=== PATIENT | female | born 1990 | race Caucasian/White ===

== ENCOUNTER 2019-04-11 15:04 | Inpatient (IN) | payer MEDICAID, OTHER, SELFPAY ==
[~2019-04-11 15:04] MED LIST: ePHEDrine 50 MG/ML VIAL ONE
--- NOTE | 2019-04-11 15:21 | PDOC.FPROB ---
FMR OB H&P: HPI - History of Present Illness Chief Complaint: decreased movement Indentification: History of Present Illness: 28 yo at 39.4 by 21.6wk sono here for oct. FM. Started Wednesday likely precipitated by oral intake since nauseas. Emesis x1. Denies fevers, chills. [place] LOF, VB, VD. No other sxs. No trauma. Scheduled for elective C/S this . [place] b/c "baby had pooped." No concerns otherwise. Primary Care Physician: Jaime FMR OB H&P: Current - Care : 3 Para: 2 Gestational age: 39.2 Due date: 04/16/19 Dating Criteria: 21.6wk sono Course/Complications: 1. Elevated 1 hr GTT 2. Late to transfer of care - OB Labs Blood type: O RH: positive Antibody Screen: negative HIV: negative RPR: negative Rubella: immune Gonorrhea: negative Chlamydia: negative Pap Smear: NILM GBS: negative FMR OB H&P: History - Past Medical History PMH: Denies - OB History OB History: 2 C/S first one indicated for "baby pooping," likely for NRFHT - Surgical History Sx History: 2 C/S - Social History Social History: Denies PELON - Family History Family History: Denies FMR OB H&P: Medications - Current Home Medications: Medication Instructions Recorded Confirmed Type Ferrous Sulfate [Ferosul] 1 tab PO DAILY 04/11/19 04/11/19 History Vitamin 1 tablet PO DAILY 04/11/19 04/11/19 History Allergies/Adverse Reactions: Allergies Allergy/AdvReac Type Severity Reaction Status Date / Time No Known Drug Allergies Allergy Verified 04/11/19 15:43 FMR OB H&P: ROS - Review of Systems General: reports: weight/appetite/sleep changes. denies: fever/chills ENT: denies: nasal congestion, rhinorrhea Cardiovascular: denies: chest pain, palpitation Respiratory: denies: shortness of breath, exercise intolerance Gastrointestinal: reports: nausea, vomiting. denies: abdominal pain, bloating Genitourinary (Female): denies: dysuria, hematuria, polyuria, vaginal discharge , vaginal pain, vaginal bleeding Musculoskeletal: denies: pain, stiffness Hematologic/Lymphatic: denies: prolonged or excessive bleeding (dec FM) Psychological: denies: anxiety FMR OB H&P: Vital Signs - Heart Tones Baseline: 150 Variability: minimal Acceleration: absent Deceleration: variable Category: category 2 FMR OB H&P: Physical Exam - Physical Exam General: NAD, awake, alert and oriented HEENT: normocephalic and atraumatic, PERRLA, EOMI, MMM Neck: supple, FROM Chest: non-tender to palpation Heart: RRR, normal S1/S2 General: CTAB, no respiratory distress Abdomen: soft, gravid Psychiatric: normal mood and affect FMR OB H&P: A/P - Problem List (1) Term Current Visit: Yes Status: Acute Code(s): Z34.90 - ENCNTR FOR SUPRVSN OF NORMAL , UNSP, UNSP TRIMESTER (2) Decreased movement Current Visit: Yes Status: Acute Code(s): O36.8190 - DECREASED MOVEMENTS, UNSP TRIMESTER, UNSP Disposition: sIUP, term -schedule repeat LTCS 04/13/19 -FHT: non-reassuring: baseline 150/minimal variability/2 variable decels -likely from dehydration -will start IV fluids/D5, proceed with c section -discussed with patient who agreed with proceeding with c section, understands risks & benefits Anemia of -home iron Recent immigration/late to care -Will need to continue routine care -Ensure up to date on vaccinations -Had negative TB screen in 2014 Hx 2 prior C sections -MD aware Glucose intolerance -Elevated 1 hr, no time to do 3hr GTT since late to care -Has been doing accuchecks -Will continue mgmt Discussion: Date/Time: 04/11/191520 This H&P was discussed with Dr. Chavira and Dr. Salgado who agree with the above documentation and plan. Addendum - Attending - Attending Attestation Date/Time: 04/11/192057 I personally evaluated the patient and discussed the management with Dr. Byrd I agree with the History, Examination, Assessment and Plan documented above with any addition or exceptions noted below- 28 yo female @ 39.4 weeks by 21 week USG presented c/o decreased FM since Wednesday. Denies any ctx, LOF, VB. H/o x 2. Afebrile VSS FHTs- 150/minimal variability/variable decels/ no accels. [place] no ctx A/P: 1) IUP @ 39.4 weeks with category 2 FHTs, decreased FM and prior c/s x 2- Admit ti l&d and plan to proceed with repeat c/ s for ninreassuring FHTs. Repeat LCT C/S performed under my direct supervision and assistance. Viable female delivered in vtx presentation. Apgars 1/8. Cord gas and blood collected. QBL 575mL Residents: Fan/[place]
[2019-04-11 15:47] VITALS: BMI 32.1
[2019-04-11] MEDS ORDERED: Promethazine HCl 25 MG/ML VIAL IM PRN ×2 (15:51→18:07)
[2019-04-11] MEDS ORDERED: Ondansetron PF 4 MG/2 ML Vial IVP PRN ×2 (15:51→18:07)
[2019-04-11] MEDS ORDERED: Bicitra 30 ML UDCUP PO SCH (16:00)
[2019-04-11] MEDS ORDERED: CEFAZOLIN 2 GM in Premix Bag 1 BAG IVPB SCH (16:00)
[2019-04-11] MEDS ORDERED: Lactated Ringer's 1,000 ML IV SCH ×2 (16:00)
[2019-04-11] MEDS ORDERED: ePHEDrine/0.9% NaCl/PF SYRINGE 50 mg/10 ml ONE (16:23)
[2019-04-11] MEDS ORDERED: MORPHINE 5 MG/10 ML PF VIAL ONE (16:23)
[2019-04-11] MEDS ORDERED: Oxytocin 10 UNITS/ML VIAL ONE ×2 (16:23→18:10)
[2019-04-11 16:35] LABS: Hemoglobin 10.8 g/dL (12.0-16.0); Mean Corpuscular HGB CONC 33.6 g/dL (32.0-36.0); Mean Corpuscular Hemoglobin 26.3 pg (27.0-31.0); Mean Corpuscular Volume 78.2 fL (78.0-98.0); Mean Platelet Volume 8.2 fL (7.4-10.4); Platelet Count 329 thou/uL (130-400); RBC Distribution Width 14.7 % (11.5-14.5); Red Blood Cell (RBC) Count 4.12 mill/uL (4.20-5.40); White Blood Cell (WBC) Count 8.1 thou/uL (4.8-10.8)
[2019-04-11 17:13] LABS: HBSAg Index 0.31 S/CO (0-0.99); Hep B Surf Ag Non-Reactive S/CO (NonReactive)
[2019-04-11 17:18] LABS: Syphilis Antibody Nonreactive (Nonreactive); Syphilis Antibody Index 0.04 S/CO (<1.00 Non-Reactive)
[2019-04-11 17:58] LABS: Actual Bicarbonate (HCO3a) 16.5 mEq/L (22-28); Base Excess (BEa) -16.3 mEq/L (-2.0 to +3.0)
[2019-04-11] MEDS ORDERED: Eucerin (Mineral Oil/Petrolatum,White) 30 gm Jar TOP PRN (18:07)
[2019-04-11] MEDS ORDERED: Meperidine HCl/PF 25 MG/ML VIAL SLOW IVP PRN (18:07)
[2019-04-11] MEDS ORDERED: diphenhydrAMINE 50 MG/ML VIAL IVP PRN (18:07)
[2019-04-11] MEDS ORDERED: Ondansetron HCl/PF 4 MG/2 ML Vial IVP PRN (18:07)
[2019-04-11] MEDS ORDERED: Ketorolac Tromethamine 30 MG/ML VIAL IVP PRN (18:07)
[2019-04-11] MEDS ORDERED: Naloxone HCl 0.4 mg/ml Vial IVP PRN ×2 (18:07)
[2019-04-11] MEDS ORDERED: Naloxone HCl 0.4 mg/ml Vial IV PRN (18:07)
[2019-04-11] MEDS ORDERED: Promethazine HCl 25 MG SUPP PR PRN (18:07)
[2019-04-11] MEDS ORDERED: L&D-Morphine 4 MG/ML VIAL SLOW IVP PRN (18:07)
[2019-04-11] MEDS ORDERED: HYDROmorphone 2 MG/ML VIAL SLOW IVP PRN (18:07)
[2019-04-11] MEDS ORDERED: Ketorolac Tromethamine 30 MG/ML VIAL IVP SCH (18:15)
[2019-04-11] MEDS ORDERED: Communication Order-Pharmacy FS SCH (18:15)
[2019-04-11] MEDS ORDERED: Adacel (T-DAP) 0.5 ML SYRINGE IM ONE (20:19)
[2019-04-11] MEDS ORDERED: Acetaminophen 325 MG TAB PO PRN (20:19)
[2019-04-11] MEDS ORDERED: Ibuprofen 800 MG TAB PO SCH (22:00)
--- NOTE | 2019-04-11 22:06 | PDOC.PP ---
Post Progress Note Post Day #: 4 hour post check Subjective: Pt denies current lightheadedness, dizziness, chest pain, dyspnea, nausea, vomiting, or severe abdominal pain. She denies any questions at this time. PO intake tolerated: no Flatus: no Ambulation: no Weight Weight 87.543 kg HR 77 BP 118/60 Temp 98.1 Resp 14 - Physical Examination General: NAD Cardiovascular: no m/r/g, RRR Respiratory: clear to auscultation bilaterally, non-labored breathing Abdominal: + bowel sounds, no distention, appropriately TTP Fundus firm & at: umbilicus Extremities: negative homans (B) Skin: CS incision dry & intact, no rash Neurological: no gross focal deficits Psychiatric: A&Ox3, normal affect Result Diagrams: 04/11/19 16:09 Additional Labs: Post Labs Blood Type O POSITIVE 04/11/19 16:12 Hep Bs Antigen Non-Reactive S/CO (NonReactive) 04/11/19 16:09 (1) Term delivered Code(s): O80 - ENCOUNTER FOR FULL-TERM UNCOMPLICATED DELIVERY Status: Acute - Assessment/Plan sIUP, delivered -Pt delivered via rLTCS due to non-reassuring FHTs -Continue routine care -VSS, no signs of internal bleeding -schedule repeat LTCS 04/13/19 Anemia of -monitor, consider repeat CBC in AM Hx 2 prior C sections Glucose intolerance -Continue monitoring
[2019-04-12] MEDS ORDERED: diphenhydrAMINE 50 MG/ML VIAL IVP PRN (02:20)
[2019-04-12] MEDS ORDERED: Ondansetron PF 4 MG/2 ML Vial IVP PRN (02:20)
[2019-04-12] MEDS ORDERED: Ketorolac Tromethamine 30 MG/ML VIAL IVP PRN (02:20)
[2019-04-12] MEDS ORDERED: Promethazine HCl 25 MG/ML VIAL IM PRN (02:20)
[2019-04-12] MEDS ORDERED: Promethazine HCl 25 MG SUPP PR PRN (02:20)
[2019-04-12] MEDS ORDERED: NO PO,IM,IV OR SC NARCOTICS FOR 12HR EXCEPT BY ANESTHESIA PO SCH (02:20)
[2019-04-12] MEDS ORDERED: Hydrocerin (Eucerin) Cream 120 gm Jar TOP PRN (02:20)
[2019-04-12] MEDS ORDERED: Naloxone HCl 0.4 mg/ml Vial IV PRN ×3 (02:20)
[2019-04-12 06:13] LABS: Mean Corpuscular Hemoglobin 25.8 pg (27.0-31.0); Mean Corpuscular Volume 78.2 fL (78.0-98.0); Mean Platelet Volume 7.9 fL (7.4-10.4); Platelet Count 284 thou/uL (130-400); RBC Distribution Width 14.6 % (11.5-14.5); Red Blood Cell (RBC) Count 3.49 mill/uL (4.20-5.40); White Blood Cell (WBC) Count 7.3 thou/uL (4.8-10.8)
--- NOTE | 2019-04-12 06:56 | PDOC.PP ---
Addendum entered and electronically signed by Darlene Byrd MD 04/12/19 11:43 : Edit to A/P: 1. Normocytic anemia -likely from acute blood loss from surgery and anemia of -will start daily iron Original Note: Post Progress Note Post Day #: 1 Subjective: NAEO per nursing and patient. Tolerated liquid diet well, wants to advance. Not walking or passing gas. Some surgical incision tenderness. Minimal VB. No fevers , weakness, dizziness. Doing well otherwise. PO intake tolerated: yes Flatus: no Ambulation: no Vital Signs (12 hours) Temp Pulse Resp BP Pulse Ox 04/12/19 02:44 98.6 F 86 17 111/61 04/11/19 22:00 98.0 F 71 17 115/67 97 04/11/19 20:30 98.1 F 75 17 118/60 96 Weight Weight 87.543 kg - Physical Examination General: NAD Cardiovascular: no m/r/g, RRR Respiratory: non-labored breathing Abdominal: + bowel sounds, lochia, appropriately TTP Deviation from normal: mild distentsion Skin: CS incision dry & intact, no rash Neurological: no gross focal deficits Psychiatric: A&Ox3, normal affect Result Diagrams: 04/12/19 05:50 Additional Labs: Post Labs Blood Type O POSITIVE 04/11/19 21:39 Hep Bs Antigen Non-Reactive S/CO (NonReactive) 04/11/19 16:09 (1) Term Code(s): Z34.90 - ENCNTR FOR SUPRVSN OF NORMAL , UNSP, UNSP TRIMESTER Status: Acute (2) Decreased movement Code(s): O36.8190 - DECREASED MOVEMENTS, UNSP TRIMESTER, UNSP Status: Acute - Assessment/Plan delivered via rLTCS for NRFHT at 39.4 sIUP s/p rLTCS x3, POD1 -rLTCS for NRFHT on 04/12 -VSS, appropriate Hb drop -VSS, no signs of internal bleeding -Continue routine care Anemia -secondary to blood loss from procedure -H/H: 08/18, vital stable, asx -can start iron supplementation Hx 2 prior C sections -MD aware Glucose intolerance -Continue monitoring -will need follow up A1c to monitor for overt development of type 2 DM Addendum - Attending - Attending Attestation Date/Time: 04/12/19 1211 I personally evaluated the patient and discussed the management with Dr. Byrd I agree with the History, Examination, Assessment and Plan documented above with any addition or exceptions noted below- Patient without complaints. Pain well controlled. Afebrile VSS. A/P: 1) POD#1 s/p repeat C/Section - continue routine postop care. Advance diet as tolerated. Begin ambulation.
[2019-04-12] MEDS ORDERED: Ferrous Sulfate 325 MG TAB PO SCH (12:00)
[2019-04-12] MEDS: Ferrous Sulfate 325 MG TAB PO SCH (13:28)
[2019-04-12] MEDS: Ibuprofen 800 MG TAB PO SCH (18:28)
[2019-04-12] MEDS: Docusate 100 MG CAP PO PRN (20:58)
[2019-04-13] MEDS: HYDROcodone/Acetaminophen 5/325 mg Tablet PO PRN ×2 (05:21→17:44)
[2019-04-13] MEDS: Ibuprofen 800 MG TAB PO SCH ×3 (05:22→21:13)
[2019-04-13] MEDS: Ferrous Sulfate 325 MG TAB PO SCH ×3 (08:19→08:31)
--- NOTE | 2019-04-13 08:22 | PDOC.PP ---
Post Progress Note Post Day #: 2 Subjective: NAEO. Doing well, no concerns . PO intake tolerated: yes Flatus: yes Ambulation: yes Vital Signs (12 hours) Temp Pulse Resp BP Pulse Ox 04/13/19 07:49 97.7 F 79 22 H 101/60 99 04/13/19 05:17 97.7 F 79 18 114/67 04/13/19 01:00 97.5 F L 95 18 97/54 L Weight Weight 87.543 kg - Physical Examination General: NAD Cardiovascular: no m/r/g, RRR Respiratory: clear to auscultation bilaterally Abdominal: lochia Skin: CS incision dry & intact, no rash Neurological: no gross focal deficits Psychiatric: A&Ox3, normal affect Result Diagrams: 04/12/19 05:50 Additional Labs: Post Labs Blood Type O POSITIVE 04/11/19 21:39 Hep Bs Antigen Non-Reactive S/CO (NonReactive) 04/11/19 16:09 (1) Term Code(s): Z34.90 - ENCNTR FOR SUPRVSN OF NORMAL , UNSP, UNSP TRIMESTER Status: Acute (2) Decreased movement Code(s): O36.8190 - DECREASED MOVEMENTS, UNSP TRIMESTER, UNSP Status: Acute - Assessment/Plan delivered via rLTCS for NRFHT at 39.4 sIUP s/p rLTCS x3, POD1 -rLTCS for NRFHT on 04/12 -VSS, appropriate Hb drop -VSS, no signs of internal bleeding -Continue routine care -Discussed nexplanon for contraception, will aid with financial assist at [facility] Anemia -secondary to blood loss from procedure -H/H: 08/18, vital stable, asx -can start iron supplementation with docusate Hx 2 prior C sections -MD aware Glucose intolerance -Continue monitoring -will need follow up A1c to monitor for overt development of type 2 DM Dispo: Doing well, baby in NICU. Continue routein care Addendum - Attending - Attending Attestation Date/Time: 04/13/19 1052 I personally evaluated the patient and discussed the management with Dr. Byrd I agree with the History, Examination, Assessment and Plan documented above with any addition or exceptions noted below - Patient without complaints. Tolerating diet. Afebrile VSS. A/P: 1) POD#2 s/p repeat LCT C/S - continue routine . H/H stable.
[2019-04-13] MEDS: Polyethylene Glycol 3350 17 GM Packet PO SCH (08:30)
--- NOTE | 2019-04-13 09:05 | OP ---
DATE OF PROCEDURE: 04/11/2019 RESIDENT SURGEON: Steffi Chavira MD CONCRETE CONVEYOR OPERATOR SURGEON: Darlene Byrd MD. ATTENDING SURGEON: Genesis Salgado MD PROCEDURE PERFORMED: Repeat low transverse section. PREOPERATIVE DIAGNOSES: 1. Term intrauterine . 2. Prior section x2. 3. Nonreactive NST and decreased movement. POSTOPERATIVE DIAGNOSES: Term intrauterine . ANESTHESIA: Spinal. INDICATIONS: The patient is a 28-year-old, G3, P 2-0-0-2, now 3-0-0-3 at 38.4 weeks' gestation, who presented with complaint of decreased movement. NST was non-reassuring, and the patient was scheduled later this week for a scheduled repeat section and it was decided to proceed with this more promptly due to non- reassuring status. DESCRIPTION OF PROCEDURE: After risks, benefits, and alternatives were explained to the patient, she gave informed consent. Preoperative antibiotics included cefazolin 2 g IV. The patient was taken to the operating room, and spinal anesthesia was initiated. She was placed in the supine position with left tilt and prepped and draped in the usual sterile fashion. Pfannenstiel incision was made with a scalpel and carried down to the level of the fascia, which was sharply nicked. The fascial cut was extended bilaterally with Mcintyre scissors. The inferior and superior edges of the cut fascial edges were elevated with Sherry clamps, and the underlying rectus muscles were sharply and bluntly dissected free. Of note, significant adhesions were noted at the midline, both upper and lower. The recti were divided digitally and retracted manually with additional sharp adhesion takedown. The peritoneum was entered bluntly and retracted manually. Bladder blade was placed. A low transverse score was made with the scalpel, and the uterus was entered in the midline with a scalpel. Green fluid was noted. Hysterotomy was extended manually. The was noted to be vertex and was easily delivered by fundal pressure. Mouth and nares were bulb suctioned. Cord was clamped and cut and grossly normal female was handed to waiting nurse. Cord blood and cord gas were obtained. Placenta was manually extracted and sent to Pathology for evaluation. The uterus was externalized, and the endometrium was curetted with a dry lap. The bladder blade was replaced, and the uterus was closed with a running locking 0 Monocryl suture. Following this, hemostasis was noted. The abdomen was irrigated. The uterus was internalized, and the hysterotomy was again noted to be hemostatic. The fascia was closed with a running non-locking 0 PDS suture. Subcutaneous tissue was irrigated, and there were no bleeders. The subcutaneous fat was approximated with three interrupted 2-0 plain gut sutures. The skin was approximated with a 3-0 Monocryl suture on a Mj needle, and Dermabond was applied. A pressure dressing was placed. All counts were correct. The patient tolerated the procedure well and was taken to the recovery room in stable condition. QUANTITATIVE BLOOD LOSS: 575 mL. COMPLICATIONS: None. SPECIMENS: Cord blood sent to lab for blood type. Cord blood gas had a pH of 6.971 with a base excess of 16.3. Significantly calcified placenta with three-vessel cord sent to Pathology for further evaluation. FINDINGS: Grossly normal female with Apgars of 1 and 8. DRAINS: [place] to gravity draining clear urine. Job ID: [id number] MTDD
[2019-04-13] MEDS: Docusate 100 MG CAP PO PRN (21:13)
--- NOTE | 2019-04-14 05:59 | PDOC.PP ---
Post Progress Note Post Day #: 3 Subjective: NAEO. Doing well, some pain at incisional site, helped with pain meds. PO intake tolerated: yes Flatus: yes Ambulation: yes (BM yesterday) Vital Signs (12 hours) Temp Pulse Resp BP Pulse Ox 04/14/19 00:00 97.4 F L 83 18 110/67 04/13/19 19:56 97.6 F 78 18 108/57 L 97 Weight Weight 87.543 kg - Physical Examination General: NAD Respiratory: clear to auscultation bilaterally, non-labored breathing Abdominal: + bowel sounds, appropriately TTP Skin: CS incision dry & intact, no rash Psychiatric: A&Ox3, normal affect Result Diagrams: 04/12/19 05:50 Additional Labs: Post Labs Blood Type O POSITIVE 04/11/19 21:39 Hep Bs Antigen Non-Reactive S/CO (NonReactive) 04/11/19 16:09 (1) Term Code(s): Z34.90 - ENCNTR FOR SUPRVSN OF NORMAL , UNSP, UNSP TRIMESTER Status: Acute (2) Decreased movement Code(s): O36.8190 - DECREASED MOVEMENTS, UNSP TRIMESTER, UNSP Status: Acute - Assessment/Plan delivered via rLTCS for NRFHT at 39.4 sIUP s/p rLTCS x3, POD3 -rLTCS for NRFHT on 04/12 -VSS, appropriate Hb drop -Continue routine care -Discussed nexplanon for contraception, will aid with financial assist at [facility] [place] Anemia -secondary to blood loss from procedure -H/H: 08/18, vital stable, asx -can start iron supplementation with docusate Hx 2 prior C sections -MD aware Glucose intolerance -Continue monitoring -will need follow up A1c to monitor for overt development of type 2 DM Dispo: Doing well, d/c today pending baby discharge Addendum - Attending - Attending Attestation Date/Time: 04/14/19 0663 I personally evaluated the patient and discussed the management with Dr. Byrd I agree with the History, Examination, Assessment and Plan documented above with any addition or exceptions noted below - Patient denies any complaints. Ambulating/voiding without difficulty. Afebrile VSS. A/P: 1) POD#3 s/p repeat LCT C/S- continue current care. Anticipate d/c home this afternoon..
[2019-04-14] MEDS: Ibuprofen 800 MG TAB PO SCH ×2 (06:51→13:30)
[2019-04-14 07:46] VITALS: BP 109/74; TEMP 97.7
[2019-04-14] MEDS: Ferrous Sulfate 325 MG TAB PO SCH (10:21)
[2019-04-14] MEDS: Polyethylene Glycol 3350 17 GM Packet PO SCH (10:22)
== END 2019-04-14 17:35 | disposition home or self-care (01) | DRG 787 ==
LOC: L&D/OP 15:04 → L&D 17:18 → 3SW 21:15
PROVIDERS: ADMIT Obstetrics & Gynecology; ATTEND Obstetrics & Gynecology
PROC: 10D00Z1 Extraction of Products of Conception, Low, Open Approach (ICD-10-PCS; principal; 2019-04-11)
DX: O76 Abnormality in fetal heart rate and rhythm complicating labor and delivery (principal); D62 Acute posthemorrhagic anemia; O36.8130 Decreased fetal movements, third trimester, not applicable or unspecified; O34.211 Maternal care for low transverse scar from previous cesarean delivery; O99.02 Anemia complicating childbirth; Z3A.39 39 weeks gestation of pregnancy; Z37.0 Single live birth
CPT/HCPCS: 36415; 51702; 82805; 85027; 86780; 86850; 86900; 86901; 87340; 88307; 90715; 99285; J0690; J1885; J2270; J2590; J3490

== ENCOUNTER 2020-09-02 19:48 | Emergency (ER) | payer MEDICAID, SELFPAY ==
[2020-09-02 21:34] LABS: BHCG - Serum POSITIVE (NEGATIVE); Pregs Control Background? CLEAR/WHITE (CLR/WHITE); Pregs Control Bar Appear? YES (CONTROL BAR)
[2020-09-03] MEDS ORDERED: Promethazine 25 MG TAB ONE (00:28)
[2020-09-03] MEDS ORDERED: Acetaminophen 500 MG TAB ONE (00:28)
[2020-09-03 00:58] LABS: Bacteria/HPF None Seen HPF (None Seen); Bilirubin Negative (Negative); Blood, Urine 2+ (Negative); Clarity Clear (Clear); Glucose, Urine (Dipstick) Normal (Negative); Ketone, Urine Negative (Negative); Leukocyte Negative Leu/uL (Negative); Nitrite Negative (Negative); Protein, Urine (Dipstick) Negative (Neg-Trace); Specific Gravity, Urine 1.026 (1.002-1.036); Squamous Epithelial 0-3 HPF (0-3); Urobilinogen Normal mg/dL (Less than 2); WBC/HPF 0-3 HPF (0-3); pH, Urine 5.5 (5.0-9.0)
== END 2020-09-03 01:28 | disposition home or self-care (01) ==
LOC: ERS 19:48
DX: O21.9 Vomiting of pregnancy, unspecified (principal); O99.891 Other specified diseases and conditions complicating pregnancy; R51.9 Headache, unspecified; Z3A.10 10 weeks gestation of pregnancy
CPT/HCPCS: 36415; 81003; 81015; 84703; 99284; Q0169